=== PATIENT | male | born 1945 | race Two or more races ===

== ENCOUNTER 2018-09-23 10:05 | Day surgery (SDC) | payer BC ==
[2018-09-23] VITALS (13 sets, daily range): BP systolic 110–141; BP diastolic 56–72; PULSE 60–102; RESP 16–27; Ht 157.5 cm; Wt 65.1 kg
[~2018-09-23] VITALS: Ht 157.5 cm; Wt 65.1 kg
[~2018-09-23 10:05] MED LIST: LIDOCAINE 2% (SDV) 5 ML INJ ONE; PROPOFOL 200 MG INJ ONE
[2018-09-23] MEDS ORDERED: ATOR20TA38 PO (10:37)
[2018-09-23] MEDS ORDERED: FER325 PO (10:37)
[2018-09-23] MEDS ORDERED: CARV3.1260 PO (10:37)
[2018-09-23] MEDS ORDERED: FINA5TAB4 PO (10:38)
[2018-09-23] MEDS ORDERED: TAMS0.4C2 PO (10:38)
[2018-09-23] MEDS ORDERED: LISI10TA2 PO (10:38)
[2018-09-23] MEDS ORDERED: CEFTRIAXONE 1 GM/NS 50 ML IVPB SCH (11:30)
[2018-09-23] MEDS ORDERED: BUPIVACAINE 0.5% (SDV) 30 ML INJ ONE ×2 (12:06→12:10)
--- NOTE | 2018-09-23 12:33 | HPN ---
Date/Time of Note Date/Time of Note DATE: 09/23/18 TIME: 12:32 Interval H&P Admission Note Pt. seen H&P reviewed: No system changes MARCO ANTONIO LOMBARDI MD Sep 23, 2018 12:32
--- NOTE | 2018-09-23 12:35 | PREAC ---
Date/Time of Note Date/Time of Note DATE: 09/23/18 TIME: 12:34 Anesthesia Eval and Record Evaluation Time Pre-Procedure Interview DATE: 09/23/18 TIME: 12:34 Age 72 Sex male NPO: 8 hrs Preoperative diagnosis balanitis Planned procedure Circumcision Past Medical History Past Medical History: Includes Cardio: HTN, Dyslipidemia, [place], CAD, CABG, Arrythmia, CHF Musculoskeletal: Osteoarthritis GI: GERD Heme: Anemia Surgery & Anesthesia Issues No known issue Meds Anticoagulation: No Beta Christie within 24 hr: No Reason Beta Christie not given: Pt. not on B-Christie Reported Medications Tamsulosin Hcl* (Tamsulosin Hcl*) 0.4 Mg Cap.er.24h, 0.4 MG PO HS, CAP 09/23/18 Lisinopril* (Lisinopril*) 10 Mg Tablet, 10 MG PO DAILY, #30 TAB 09/23/18 Finasteride* (Finasteride*) 5 Mg Tablet, 5 MG PO DAILY, TAB 09/23/18 Ferrous Sulfate* (Ferrous Sulfate*) 325 Mg Tabec, 325 MG PO DAILY, TAB 09/23/18 Carvedilol* (Carvedilol*) 3.125 Mg Tablet, 3.125 MG PO BID, #60 TAB 09/23/18 Atorvastatin Calcium* (Atorvastatin Calcium*) 20 Mg Tablet, 20 MG PO QHS, #30 TAB 09/23/18 Current Medications Ceftriaxone Sodium 50 ml @ 100 mls/hr PRE-OP IVPB ; Start 09/23/18 at 11:30; Stop 09/23/18 at 15:00 Meds reviewed: Yes Allergies Coded Allergies: No Known Allergy (Unverified , 09/23/18) Allergies Reviewed: Yes Labs/Studies Labs Reviewed: Reviewed by anesthesiologist test: Negative Studies: ECG Pre-procedure Exam Last vitals Vital Signs Date Temp Pulse Resp B/P (MAP) Pulse Ox O2 O2 Flow FiO2 Time Delivery Rate 09/23/18 97.3 102 18 141/65 98 Room Air 11:19 (90) Airway: Adequate mouth opening, Adequate thyromental dist Mallampati: Mallampati II Teeth: Normal Lung: Normal Heart: Normal ASA Physical Status ASA physical status: 3 Emergency: None Planned Anesthetic General/MAC: Mask, ETT, MAC Pre-operative Attestations Prior to commencing anesthesia and surgery, the patient was re-evaluated, there was verification of: *The patient's identity *The results of appropriate recent lab work and preoperative vital signs *The above evaluation not changing prior to induction *Anesthetic plan, risk benefits, alternative and complications discussed with patient/family; questions answered; patient/family understands, accepts and wishes to proceed. OFELIA LYNCH Sep 23, 2018 12:35
[2018-09-23] MEDS ORDERED: FENTAnyl 50 MCG/ML VIAL ONE (12:47)
[2018-09-23] MEDS ORDERED: LIDOCAINE 2% (MDV) 20 ML INJ ONE (12:49)
[2018-09-23] MEDS ORDERED: FENTAnyl 50 MCG/ML VIAL IV PRN (13:00)
[2018-09-23] MEDS ORDERED: ONDANSETRON 4 MG INJ IV PRN (13:00)
[2018-09-23] MEDS ORDERED: DIPHENHYDRAMINE 50 MG INJ IV PRN (13:00)
[2018-09-23] MEDS ORDERED: HYDROmorphONE 1 MG/5 ML IV SYRINGE IV PRN ×2 (13:00)
[2018-09-23] MEDS ORDERED: ALBUTEROL 0.083% (NEB) 2.5 MG/3 ML AMP HHN PRN (13:00)
[2018-09-23] MEDS ORDERED: MEPERIDINE 25 MG INJ IV PRN (13:00)
[2018-09-23] MEDS ORDERED: PHENYLephrine (100 MCG/ML) 5ML SYG ONE (13:06)
[2018-09-23] MEDS: FENTAnyl 50 MCG/ML VIAL IV PRN ×2 (14:19→14:29)
--- NOTE | 2018-09-23 14:23 | OPR ---
Date/Time of Note Date/Time of Note DATE: 09/23/18 TIME: 14:16 Operative Report Procedure Date: Sep 23, 2018 Preoperative Diagnosis Severe phimosis and balanitis Postoperative Diagnosis Same Operation/Procedure Performed Circumcision Surgeon see signature line Cost Consultant support technician Anesthesia Type: MAC Anesthesiologist: OFELIA LYNCH Estimated Blood Loss: 0 - 10 ml's Transfusion none Specimen Foreskin Grafts/Implants none Complications none Pt Condition Post Procedure: stable Disposition: PACU Indications Balanitis, phimosis and urinary retention. Procedure Description The patient was brought to the operating room. Time out was done. The patient was identified by his name, date and the procedure. Patient was given 1 g of ceftriaxone IV at the start of the procedure. The genital area was then prepped and draped in usual sterile manner. I injected half percent Marcaine mixed with equal amount of lidocaine 2% around the base of the penis and around the foreskin at the level of the eubanks for local anesthesia. At the same time the anesthesiologist gave him deep sedation. A dorsal slit was first done so the foreskin can be retracted. The penis was then painted again with Betadine solution. The foreskin at the level of the eubanks was marked then incised. The foreskin was then retracted and another incision was made one centimeter proximal to the eubanks. The skin between the 2 incisions was removed. All the bleeders were electrocoagulated and good hemostasis was obtained. The subcutaneous tissue was approximated with 3-0 Vicryl interrupted sutures at the 9,12, 3 and 6 o'clock position. The incision was then closed with 3-0 and 4 -0 Vicryl interrupted sutures. The incision was then covered was a Vaseline gauze and a Giuseppe. I then painted the area around the suprapubic tube with Betadine deflated the balloon of the old suprapubic tube and removed it and inserted a new 14 [place] catheter through the suprapubic tract. I did send the urine for culture. Did contact the suprapubic tube to a drainage bag. Patient was transferred to the recovery room in stable and satisfactory condition. MARCO ANTONIO LOMBARDI MD Sep 23, 2018 14:23
[2018-09-23] MEDS ORDERED: HYDROCODONE/APAP (5/325) TAB PO PRN (14:30)
--- NOTE | 2018-09-23 15:57 | PAC ---
Date/Time of Note Date/Time of Note DATE: 09/23/18 TIME: 15:56 Post-Anesthesia Notes Post-Anesthesia Note Last documented vital signs Vital Signs Date Temp Pulse Resp B/P (MAP) Pulse Ox O2 O2 Flow FiO2 Time Delivery Rate 09/23/18 68 21 128/68 97 Room Air 14:54 (88) 09/23/18 97.9 14:07 09/23/18 6.0 14:04 Activity: WNL Respiratory function: WNL Cardiovascular function: WNL Mental status: Baseline Pain reasonably controlled: Yes Hydration appropriate: Yes Nausea/Vomiting absent: Yes OFELIA LYNCH Sep 23, 2018 15:57
== END 2018-09-23 16:03 | disposition home or self-care (01) ==
LOC: SDS 10:05 → EDSEX 12:30 → SDS 16:03
PROVIDERS: ATTEND Urology
DX: N48.1 Balanitis (principal); N47.1 Phimosis
CPT/HCPCS: 54161; 81001; 87086; J2370; J3010; Z7512; Z7610; 88304